=== PATIENT | male | born 1995 | race Caucasian/White ===

== ENCOUNTER 2020-06-03 10:07 | Emergency (ER) | payer OTHER ==
[~2020-06-03] VITALS: Ht 180.3 cm; Wt 81.8 kg
[2020-06-03 10:15] VITALS: BP 147/67
== END 2020-06-03 12:29 | disposition home or self-care (01) ==
LOC: EMS 10:09
DX: R50.9 Fever, unspecified (principal); R05 Cough; R06.02 Shortness of breath; R07.89 Other chest pain; F17.200 Nicotine dependence, unspecified, uncomplicated; Z20.828 Contact with and (suspected) exposure to other viral communicable diseases
CPT/HCPCS: 71045-TC